=== PATIENT | male | born 1960 | race Caucasian/White ===

== ENCOUNTER 2018-07-15 07:04 | Day surgery (SDC) | payer OTHER ==
[~2018-07-15] VITALS: Ht 182.9 cm; Wt 102.1 kg
[~2018-07-15 07:04] MED LIST: ASA; CYCL-10 PO; LISI-600 PO; METOPROLOL; MUSCLE RELAXER; PEPCID; SIMVASTATIN; TRAMADOL
[2018-07-15] MEDS ORDERED: SIMETHICONE 40 MG/0.6 ML ML ONE (07:44)
[2018-07-15] MEDS ORDERED: GLYCOPYRROLATE 0.2 MG/ML VIAL ONE (07:45)
[2018-07-15] MEDS ORDERED: MEPERIDINE HCL/PF 100 MG/ML AMP ONE (07:45)
[2018-07-15] MEDS: MIDAZOLAM HCL 5 MG/5 ML VIAL ONE ×3 (08:44→08:48)
[2018-07-15 11:33] VITALS: BP_SYST 117
== END 2018-07-15 10:00 | disposition home or self-care (01) ==
LOC: SDS 07:04 → SMU 07:04 → SDS 10:00
PROVIDERS: ATTEND Colon & Rectal Surgery
DX: R10.32 Left lower quadrant pain (principal); I13.10 Hypertensive heart and chronic kidney disease without heart failure, with stage 1 through stage 4 chronic kidney disease, or unspecified chronic kidney disease; N18.3 Chronic kidney disease, stage 3 (moderate); I48.91 Unspecified atrial fibrillation; E78.5 Hyperlipidemia, unspecified; Z98.890 Other specified postprocedural states; Z80.3 Family history of malignant neoplasm of breast; Z80.8 Family history of malignant neoplasm of other organs or systems; Z79.899 Other long term (current) drug therapy; Z79.01 Long term (current) use of anticoagulants
CPT/HCPCS: 45378; J2175; J2250; J7030; J3490